=== PATIENT | female | born 1950 | race Caucasian/White ===

== ENCOUNTER 2016-08-09 07:25 | Day surgery (SDC) | payer OTHER ==
[~2016-08-09] VITALS: Ht 160 cm; Wt 58.0 kg
--- NOTE | 2016-08-09 09:01 | CONS ---
DATE OF ADMISSION: 08/09/2016 DATE OF CONSULTATION: TYPE OF CONSULTATION: Preoperative gastroenterology. I thank you very much for this kind referral. HISTORY OF PRESENT ILLNESS: Ms. Merle Sylvester is a 65-year-old female patient who has been referred to me for further evaluation of upper abdominal pain and chronic heartburn, not responding to therapy with omeprazole. There is no past history of peptic ulcer disease. She is not taking any nonsteroi cici anti-inflammatory agents. Her appetite has been good, and she is not losing any weight. There is no history of gallstones. She does not have any fever, chills, or jaundice. There is no history of liver disease. The patient denies any change in the bowel habit or rectal bleeding. There is n o past history of colon neoplasm. She never had screening colonoscopy. She is not a hypertensive o r diabetic. She does not have any heart disease or lung problem. There is no history of kidney dis ease. She is status post hysterectomy. SOCIAL HISTORY: She is a nonsmoker. She does not abuse alcohol. FAMILY HISTORY: Negative for gastrointestinal tract neoplasm. ALLERGIES: THERE IS NO HISTORY OF SIGNIFICANT DRUG ALLERGY. MEDICATIONS: None. PHYSICAL EXAMINATION: VITAL SIGNS: She is 5 feet 3 inches tall, and she weighs 129 pounds. HEART: Examination of the heart reveals normal first and second heart sounds. LUNGS: Clear. ABDOMEN: Soft without any distention. Liver and spleen are not palpable. There are no masses. Th ere is no focal tenderness. Normal bowel sounds are heard. CENTRAL NERVOUS SYSTEM: Does not reveal any focal neurological deficit. IMPRESSION: 1. Upper abdominal pain and chronic heartburn, not responding to therapy with omeprazole. 2. The patient is more than 50 years old, and she never had screening colonoscopy. 3. Status post hysterectomy. PLAN: 1. Endoscopic examination to rule out peptic ulcer disease and erosive esophagitis. 2. Screening colonoscopy at a later date. The procedures and possible complications are well explained to the patient. She understands and co nsents to the procedures. I thank you once again. With warmest personal regards, Dictated By: INDIRA DE LA ROSA/DONI Conf#: [id number] DID#: [id number]
[2016-08-09 09:31] VITALS: Ht 160 cm; Wt 58.0 kg
[2016-08-09 09:58] VITALS: BP 147/78; PULSE 70; RESP 18
[2016-08-09] MEDS ORDERED: FENTAnyl 50 MCG/ML VIAL ONE (10:23)
[2016-08-09] MEDS ORDERED: MIDAZOLAM 1 MG/ML 2 ML INJ ONE ×2 (10:23)
[2016-08-09 10:45] VITALS: BP 127/67; PULSE 71; RESP 18
--- NOTE | 2016-08-10 03:17 | GILP ---
DATE OF PROCEDURE: NAME OF PROCEDURE: Esophagogastroduodenoscopy and biopsy. SURGEON: Indira James MD PREOPERATIVE DIAGNOSES: 1. Abdominal pain. 2. Chronic heartburn. POSTOPERATIVE DIAGNOSES: 1. Gastroesophageal reflux disease. 2. Gastritis with erosions. 3. Gastric mucosal biopsies were taken to rule out gastric mucosal biopsies were taken for Helicoba cter pylori test. INDICATION FOR THE PROCEDURE: Ms. Merle Sylvester is a 65-year-old female patient who had upper abdomina l pain and chronic heartburn, not responding to therapy. The patient was scheduled for endoscopic e xamination for further evaluation. The procedure and possible complications are well explained to the patient and the patient understoo d and consented to the procedure. DESCRIPTION OF PROCEDURE: Under the influence of fentanyl and Versed, the gastroscope was carefully introduced into the esophagus. Under direct vision, it was advanced to the stomach and through the pylorus into the duodenal bulb and descending duodenum. FINDINGS: ESOPHAGUS: The patient had gastroesophageal reflux disease. STOMACH: She had gastritis. Gastric mucosal biopsies were taken for H. pylori test. DUODENUM: Normal. She tolerated the procedure very well and there was no complication from the procedure. At the end of the procedure, she was awake with stable vital signs and she was discharged home to the care of h er family. IMPRESSION: 1. Gastroesophageal reflux disease. 2. Gastritis with erosions. 3. Gastric mucosal biopsies were taken for Helicobacter pylori test. PLAN: 1. Omeprazole 40 mg p.o. q.a.m. 2. Zantac 300 mg p.o. at bedtime. 3. Await H. pylori test report. Dictated By: INDIRA DE LA ROSA/DONI Conf#: [id number] DID#: [id number] CC: INDIRA JAMES MD;*EndCC*
== END 2016-08-09 15:22 | disposition home or self-care (01) ==
LOC: GIL 07:25
PROVIDERS: ATTEND Internal Medicine Gastroenterology
DX: K21.9 Gastro-esophageal reflux disease without esophagitis (principal); K29.60 Other gastritis without bleeding
CPT/HCPCS: 43239; 87081; J2250; J3010; Z7610

== ENCOUNTER 2016-10-25 09:00 | Day surgery (SDC) | payer OTHER ==
[~2016-10-25] VITALS: Ht 157.5 cm; Wt 59.9 kg
[2016-10-25 09:42] VITALS: Ht 157.5 cm; Wt 59.9 kg
[2016-10-25 10:37] VITALS: BP 148/80; PULSE 77; RESP 18
--- NOTE | 2016-10-25 11:39 | OPPN ---
Date/Time of Note Date/Time of Note DATE: 10/25/16 TIME: 11:37 Operative Report Preoperative Diagnosis Screening colonoscopy Postoperative Diagnosis Small sigmoid colon polyp Internal hemorrhoids Operation/Procedure Performed Colonoscopy and biopsy Anesthesia: other Estimated blood loss: none Complications: None INDIRA JAMES MD Oct 25, 2016 11:39
[2016-10-25] MEDS ORDERED: MIDAZOLAM 1 MG/ML 2 ML INJ ONE ×2 (12:00)
[2016-10-25] MEDS ORDERED: FENTAnyl 50 MCG/ML VIAL ONE (12:00)
--- NOTE | 2016-10-25 12:07 | GILP ---
DATE OF PROCEDURE: 10/25/2016 PROCEDURE PERFORMED: Colonoscopy and biopsy. PREOPERATIVE DIAGNOSIS: Screening colonoscopy. POSTOPERATIVE DIAGNOSES: 1. Colonoscopy all the way to the cecum. 2. Small sigmoid colon polyp was removed using biopsy forceps. 3. Internal hemorrhoids. INDICATION: Screening colonoscopy. Merle Sylvester is a 66-year-old female patient who was scheduled for screening colonoscopy. The procedure and possible complications were well explained to the patient. She understood and consented to the procedure. DESCRIPTION OF PROCEDURE: Under influence of fentanyl and Versed, the colonoscope was carefully introduced the rectum, and under direct vision it was advanced all the way to the cecum. FINDINGS: The patient had a small sigmoid colon polyp and it was removed using the biopsy forceps. She had internal hemorrhoids. She tolerated the procedure very well. There were no complications from the procedure. At the end of procedure, she was awake with stable vital signs and she was discharged home in care of her family. IMPRESSION: 1. Colonoscopy all the way to the cecum. 2. Small sigmoid colon polyp was removed using the biopsy forceps. 3. Internal hemorrhoids. PLAN: Next screening colonoscopy in 10 years. Dictated By: MD RJ Manzanares/kendall/[place] /Document#: [id number]
[2016-10-25 12:10] VITALS: BP 128/75; PULSE 64; RESP 18
== END 2016-10-25 17:26 | disposition home or self-care (01) ==
LOC: GIL 09:00
PROVIDERS: ATTEND Internal Medicine Gastroenterology
DX: Z12.11 Encounter for screening for malignant neoplasm of colon (principal); D12.5 Benign neoplasm of sigmoid colon; K64.8 Other hemorrhoids
CPT/HCPCS: 45380; 88305; J2250; J3010; Z7610